=== PATIENT | female | born 1985 ===

== ENCOUNTER 2018-12-24 21:59 | Outpatient (CLI) | payer OTHER ==
[~2018-12-24] VITALS: Ht 162.6 cm; Wt 80.4 kg
== END 2018-12-24 22:54 | disposition home or self-care (01) ==
LOC: LDOP 21:59
PROVIDERS: ATTEND Obstetrics & Gynecology
DX: O36.8130 Decreased fetal movements, third trimester, not applicable or unspecified (principal); Z3A.39 39 weeks gestation of pregnancy
CPT/HCPCS: 59025; 76818; 76819; 99211; G0463

== ENCOUNTER 2018-12-25 22:07 | Inpatient (IN) | payer OTHER ==
[~2018-12-25] VITALS: Ht 162.6 cm; Wt 80.4 kg
[2018-12-25 22:30] VITALS: BP 123/80
[2018-12-25] MEDS ORDERED: LACTATED RINGERS 1,000 ML IV SCH (22:38)
[2018-12-25] MEDS ORDERED: OXYTOCIN 30U/ 0.9% NaCL 500ML 500 ML IV ONE (22:38)
[2018-12-25] MEDS ORDERED: D5%-LACTATED RINGERS 1,000 ML IV SCH (22:38)
[2018-12-25] MEDS ORDERED: LIDOCAINE 1%, 20ML ONE (22:44)
[2018-12-25] MEDS ORDERED: MISOPROSTOL 200 MCG TABLET ONE (22:44)
[2018-12-25] MEDS ORDERED: OXYTOCIN 30U/ 0.9% NaCL 500ML 500 ML ONE (22:44)
[2018-12-25] MEDS ORDERED: NEWBORN KIT ONE (22:44)
[2018-12-25] MEDS ORDERED: FENTANYL PF 100 MCG/2ML IVPush PRN (23:00)
[2018-12-25] MEDS ORDERED: TERBUTALINE 1 MG/ML, 1ML SQ PRN (23:00)
[2018-12-25] MEDS ORDERED: FENTANYL PF 100 MCG/2ML IV PRN (23:00)
[2018-12-25] MEDS ORDERED: SODIUM CITRATE/CITRIC ACID 30 ML UDC PO PRN (23:00)
[2018-12-25] MEDS ORDERED: ONDANSETRON 2MG/ML, 2ML IVPush PRN (23:00)
[2018-12-25] MEDS ORDERED: METOCLOPRAMIDE 5 MG/ML, 2ML IVPush PRN (23:00)
[2018-12-25] MEDS ORDERED: TERBUTALINE 1 MG/ML, 1ML IVPush PRN (23:00)
[2018-12-25] MEDS ORDERED: CALCIUM CARBONATE 500 MG TAB.CHEW PO PRN (23:00)
[2018-12-25 23:09] LABS: BASOPHILS # (AUTO) 0.05 x10^3/uL (0-0.1); BASOPHILS % (AUTO) 0 % (0-1); EOSINOPHILS # (AUTO) 0.17 x10^3/uL (0-0.4); EOSINOPHILS % (AUTO) 1 % (1-7); LYMPHOCYTES # (AUTO) 1.76 x10^3/uL (1-3.4); LYMPHOCYTES % (AUTO) 13 % (22-44); MD NO; MEAN CORPUSCULAR HEMOGLOBIN 31.8 pg (27.0-34.8); MEAN CORPUSCULAR HGB CONC 33.3 g/dL (32.4-35.8); MEAN CORPUSCULAR VOLUME 95.5 fL (80-100); MEAN PLATELET VOLUME 9.1 fL (7.4-10.4); MONOCYTES # (AUTO) 0.89 x10^3/uL (0.2-0.8); MONOCYTES % (AUTO) 7 % (2-9); NEUTROPHILS # (AUTO) 10.66 x10^3/uL (1.8-6.8); NEUTROPHILS % (AUTO) 79 % (42-75); PLATELET COUNT 269 x10^3/uL (130-400); RED BLOOD COUNT 4.48 x10^6/uL (3.82-5.3)
[2018-12-26] MEDS ORDERED: ONDANSETRON 2MG/ML, 2ML ONE ×2 (00:26→10:37)
[2018-12-26] MEDS ORDERED: FENTANYL/BUPIV./NS/PF 250 ML EPIDCONT SCH ×2 (01:39→03:13)
[2018-12-26] MEDS ORDERED: FENTANYL PF 100 MCG/2ML ONE (01:50)
[2018-12-26] MEDS ORDERED: LACTATED RINGERS 1,000 ML IVBOLUS PRN ×2 (02:00→03:30)
[2018-12-26] MEDS ORDERED: BUPIVACAINE 0.25% ONE (02:21)
[2018-12-26] MEDS ORDERED: FENTANYL/BUPIV./NS/PF 250 ML EPIDCONT ONE (02:54)
[2018-12-26] MEDS ORDERED: LACTATED RINGERS 1,000 ML IV SCH (03:13)
[2018-12-26] MEDS ORDERED: DIPHENHYDRAMINE 50 MG/ML, 1ML IVPush PRN (03:30)
[2018-12-26] MEDS ORDERED: NALOXONE 0.4 MG/ML, 1ML IVPush PRN (03:30)
[2018-12-26] MEDS ORDERED: EPHEDRINE 50 MG/ML, 1ML IVPush PRN (03:30)
[2018-12-26] MEDS ORDERED: ONDANSETRON 2MG/ML, 2ML IVPush PRN (03:30)
[2018-12-26] MEDS ORDERED: OXYTOCIN 30U/ 0.9% NaCL 500ML 500 ML IV PRN (04:11)
[2018-12-26] MEDS: OXYTOCIN 30U/ 0.9% NaCL 500ML 500 ML IV SCH (14:39)
[2018-12-26] MEDS ORDERED: MISOPROSTOL 200 MCG TABLET PR PRN (15:00)
[2018-12-26] MEDS ORDERED: ACETAMINOPHEN 325 MG TABLET PO PRN (15:00)
[2018-12-26] MEDS ORDERED: SIMETHICONE 80 MG CHEW TAB PO PRN (15:00)
[2018-12-26] MEDS ORDERED: OXYcodone/APAP 5/325MG TABLET PO PRN (15:00)
[2018-12-26] MEDS ORDERED: ONDANSETRON 2MG/ML, 2ML IV PRN (15:00)
[2018-12-26] MEDS ORDERED: OXYcodone IR 5MG TABLET PO PRN (15:00)
[2018-12-26] MEDS ORDERED: IBUPROFEN 600 MG TABLET ONE (15:32)
[2018-12-26 17:00] VITALS: BP 113/78
[2018-12-26 19:30] VITALS: BP 113/73
[2018-12-26] MEDS: IBUPROFEN 600 MG TABLET PO PRN (21:46)
[2018-12-26] MEDS: DOCUSATE 100 MG CAPSULE PO PRN (21:46)
[2018-12-26 22:14] LABS: MEAN CORPUSCULAR HEMOGLOBIN 31.9 pg (27.0-34.8); MEAN CORPUSCULAR HGB CONC 33.2 g/dL (32.4-35.8); MEAN CORPUSCULAR VOLUME 96.3 fL (80-100); MEAN PLATELET VOLUME 8.9 fL (7.4-10.4); PLATELET COUNT 267 x10^3/uL (130-400); RED BLOOD COUNT 3.69 x10^6/uL (3.82-5.3); RED CELL DISTRIBUTION WIDTH 13.4 % (9.6-15.2)
[2018-12-26 23:16] LABS: BASOPHILS # (AUTO) 0.02 x10^3/uL (0-0.1); BASOPHILS % (AUTO) 0 % (0-1); EOSINOPHILS % (AUTO) 0 % (1-7); LYMPHOCYTES # (AUTO) 1.21 x10^3/uL (1-3.4); LYMPHOCYTES % (AUTO) 5 % (22-44); MD SCAN; MONOCYTES # (AUTO) 1.31 x10^3/uL (0.2-0.8); MONOCYTES % (AUTO) 5 % (2-9); NEUTROPHILS # (AUTO) 22.57 x10^3/uL (1.8-6.8); NEUTROPHILS % (AUTO) 90 % (42-75)
[2018-12-27 00:30] VITALS: BP 110/72
[2018-12-27] MEDS: OXYTOCIN 30U/ 0.9% NaCL 500ML 500 ML IV SCH (00:39)
[2018-12-27 04:50] VITALS: BP 119/79
[2018-12-27] MEDS: IBUPROFEN 600 MG TABLET PO PRN ×2 (04:52→11:21)
[2018-12-27 08:00] VITALS: BP 115/78
[2018-12-27] MEDS ORDERED: PRENATAL VIT/IRON/FA 1 EACH TABLET PO SCH (09:00)
[2018-12-27] MEDS: DOCUSATE 100 MG CAPSULE PO PRN (11:21)
[2018-12-27 12:55] VITALS: BP 114/74
[2018-12-27] MEDS ORDERED: DOCU-131 PO (16:00)
[2018-12-27] MEDS ORDERED: IBUP-1222 PO (16:00)
== END 2018-12-27 16:48 | disposition home or self-care (01) | DRG 807 ==
LOC: LDOP 22:07 → LDIP 22:48 → 2NW 12-26 16:39
PROVIDERS: ADMIT Obstetrics & Gynecology; ATTEND Obstetrics & Gynecology
PROC: 10E0XZZ Delivery of Products of Conception, External Approach (ICD-10-PCS; principal; 2018-12-26)
PROC: 0KQM0ZZ Repair Perineum Muscle, Open Approach (ICD-10-PCS; 2018-12-26)
PROC: 3E0R3BZ Introduction of Anesthetic Agent into Spinal Canal, Percutaneous Approach (ICD-10-PCS; 2018-12-26)
PROC: 00HU33Z Insertion of Infusion Device into Spinal Canal, Percutaneous Approach (ICD-10-PCS; 2018-12-26)
DX: O70.1 Second degree perineal laceration during delivery (principal); Z37.0 Single live birth; Z3A.40 40 weeks gestation of pregnancy; Z98.1 Arthrodesis status; Z88.8 Allergy status to other drugs, medicaments and biological substances
CPT/HCPCS: 36415; 85025; 86850; 86900; 89060; G0378; J2405; J3010; J7120; Q0114